=== PATIENT | female | born 2000 | race Caucasian/White ===

== ENCOUNTER 2021-06-12 11:37 | Emergency (ER) | payer BC ==
[2021-06-12 13:16] LABS: HEMOGLOBIN 14.6 gm/dl (12.3-15.3); RED BLOOD COUNT 4.71 M/UL (4.00-5.10); WHITE BLOOD COUNT 5.2 K/UL (4.5-11.0)
[2021-06-12 13:58] LABS: BUN/CREATININE RATIO 16 (0-10)
[2021-06-12] MEDS ORDERED: ZOFRAN4 MG PO (18:25)
== END 2021-06-12 18:35 | disposition home or self-care (01) ==
LOC: ER1 11:37
PROVIDERS: Physician Assistant
DX: R10.12 Left upper quadrant pain (principal); R11.2 Nausea with vomiting, unspecified
CPT/HCPCS: 80053; 81001; 82150; 83690; 84703; 85025; 96374; 96375; 96376; 99284; J2270; J2405; J7030; Q9967